=== PATIENT | female | born 1930 | race Two or more races ===

== ENCOUNTER → 2017-01-07 | Outpatient (CLI) | payer MEDICARE, MEDICAID ==
[~2017-01-07] MED LIST: ALBUTEROL MININEB NEB; ALBUTEROL SULF8.5 G1 INH; ALBUTEROL17 GM INH; ALDACTONE25 MG PO; ASPIRIN81 M2 PO; AZITHROMYCIN250 MG PO; B COMPLEX; B COMPLEX WITH1 EAC1 PO; BAYER CHEWABLE81 MG PO; BENICAR PO; BENICAR20 MG PO; BUMETANIDE0.5 MG PO; BUMEX2 MG PO; BYSTOLIC10 MG PO; CARVEDILOL6.25 MG PO; CHLORTHALIDONE25 MG PO; CIPRO PO; CIPRO250 M1 PO; CLEOCIN HCL300 M1 PO; COLACE PO; COREG3.125 MG PO; COREG6.25 MG PO; COUMADIN4 MG PO; CYANOCOBAL1000 MCG/M INJ; DIFLUCAN100 MG PO; DIGOX0.125 MG PO; DOC-Q-LACE100 MG PO; DOCUSATE SODIU100 MG PO; EFFER-K 10 MEQ10 MEQ PO; ELIQUIS2.5 MG PO; FENOFIBRATE160 MG PO; FLAGYL PO; FLORANEX T1 TAB.CHE3 PO; FLUCONAZOLE150 M1 PO; GNP B-COMPLEX1 EACH PO; KCL PO; LASIX PO; LEVAQUIN PO; LEVAQUIN250 MG PO; LEVO-T25 MCG PO; LIPITOR PO; LIPITOR20 MG DOB; LIPITOR20 MG PO; LISINOPRIL2.5 MG PO; LOSARTAN POTASS50 MG PO; MEDROL DOSEPAK4 MG DOB; MEDROL DOSEPAK4 MG PO; METRONIDAZOLE PO; NOVOLOG FL100 UNIT/1; NOVOLOG100 U/M2; POTASSIUM CHLO10 MEQ PO; PRINIVIL5 MG PO; PROAIR HFA8.5 GM IH; PROMETHAZINE D118 ML PO; ROBITUSSIN A-C10 ML PO; STOOL SOFTENER1 EAC1 PO; TIROSINT25 MCG PO; VIRTUSSIN DAC473 ML; VITAMIN B COMPLEX PO; VITAMIN D1000 UNI2 PO; ZITHROMAX PO; ZYLOPRIM100 MG DOB; ZYLOPRIM100 MG PO
--- NOTE | ~2017-01-07 | CR127 ---
[facility]. [facility] A Service of [facility] & [facility] RADIOLOGY TEXT RESULTS PATIENT: YAMILEX RITCHIE LOCATION: [facility] : 32 UNIT #: [id number] AGE: [address]: Melvin Delgado MD SEX: F ORDER DR: [id number] [place] [id number] O MR#: [id number] Acc #: [id number] NAME: YAMILEX RITCHIE. : 1930 SEX: F STUDY DATE/TIME: 01/07/2017 17:14 UNIT: [facility] ROOM: STUDY DESCRIPTION: CR Foot Complete Min 3 View Rt Attending Physician: Melvin Delgado M.D. Referring Physician: Melvin Delgado M.D. Ordering Physician: Melvin Delgado M.D. Primary Care Physician: Gregg Nicole M.D. MEDICAL IMAGING REPORT This report is preliminary unless electronic signature is present. EXAM Right foot 01/07 INDICATIONS Pain, swelling and bruising in the foot and ankle for 2 weeks after trauma. FINDINGS 3 views of the right foot were obtained. There is a large plantar calcaneal spur. Small posterior calcaneal spur is noted as well. There is degenerative spurring in the ankle and midfoot. No acute fracture or malalignment is identified. IMPRESSION Chronic degenerative change as above. No acute fracture. Dictated by... Jasbir Lewis Jr., M.D. THIS IS AN ELECTRONICALLY VERIFIED REPORT Jasbir Lewis Jr., M.D. at 01/09/2017 7:34 PM RLK/bri TD: 01/08/2017 17:12 JOB #: [id number] MEDICAL IMAGING REPORT Page 1 of 1
--- NOTE | ~2017-01-07 | CR21 ---
[facility] A Service of [facility] RADIOLOGY TEXT RESULTS PATIENT: YAMILEX RITCHIE LOCATION: [facility] : 32 UNIT #: [id number] AGE: [address]: Melvin Delgado MD SEX: F ORDER DR: [id number] [place] [id number] O MR#: [id number] Acc #: [id number] NAME: YAMILEX RITCHIE. : 1930 SEX: F STUDY DATE/TIME: 01/07/2017 17:14 UNIT: [facility] ROOM: STUDY DESCRIPTION: CR Ankle Min 3 Views Rt Attending Physician: Melvin Delgado M.D. Referring Physician: Melvin Delgado M.D. Ordering Physician: Melvin Delgado M.D. Primary Care Physician: Gregg Nicole M.D. MEDICAL IMAGING REPORT This report is preliminary unless electronic signature is present. exam right ankle 01/07/2017. INDICATIONS Pain, swelling and bruising in the foot and ankle for 2 weeks after trauma. FINDINGS 3 views of the right ankle were obtained. No comparison. Soft tissue swelling is noted around the ankle. Large plantar calcaneal spur is present with some mild spurring posteriorly, as well. There is spurring at the tibiotalar joint. No acute fractures are identified. There is some lucency in the medial talar dome which could reflect osteochondral lesion. 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 Soft tissue swelling is present, as well. No acute fracture or malalignment. Dictated by... Jasbir Lewis Jr., M.D. THIS IS AN ELECTRONICALLY VERIFIED REPORT Jasbir Lewis Jr., M.D. at 01/08/2017 5:05 PM JENN/nader TD: 01/08/2017 16:53 JOB #: [id number] MEDICAL IMAGING REPORT [facility] A Service of [facility] RADIOLOGY TEXT RESULTS PATIENT: YAMILEX RITCHIE LOCATION: [facility] : 32 UNIT #: [id number] AGE: [address]: Melvin Delgado MD SEX: F ORDER DR: Page 1 of 1
== END | disposition home or self-care (01) ==
LOC: SRAD 17:04
DX: M25.471 Effusion, right ankle (principal); M79.89 Other specified soft tissue disorders; M19.071 Primary osteoarthritis, right ankle and foot; M77.9 Enthesopathy, unspecified; M89.9 Disorder of bone, unspecified
CPT/HCPCS: 73610; 73630